=== PATIENT | female | born 1945 | race Hispanic/Latino ===

== ENCOUNTER 2017-07-16 03:16 | Observation (INO) | payer MEDICARE, BC ==
[2017-07-16 03:16] VITALS: BMI 19.8
[2017-07-16 03:34] VITALS: TEMP 98.6
[2017-07-16] MEDS ORDERED: Iohexol 240 (50 ml) PO ONE (04:01)
[2017-07-16] MEDS ORDERED: Iohexol 240 (50 ml) ONE (04:07)
--- NOTE | 2017-07-16 04:12 | ED PDOC ---
HPI: Abdomen <Rachel Lopez Y - Last Filed: 07/16/17 05:45> Chief Complaint (Provider): abdominal pain History Per: Patient, Family History/Exam Limitations: no limitations Onset/Duration Of Symptoms: Days (3) Current Symptoms Are (Timing): Still Present Location Of Pain/Discomfort: RLQ, LLQ, Suprapubic Quality Of Discomfort: "Pain" Associated Symptoms: Constipation. denies: Fever, Chills, Nausea, Vomiting Additional History Per: Patient <Jamila Goode - Last Filed: 07/16/17 05:47> Time Seen by Provider: 07/16/17 03:31 Chief Complaint (Nursing): Abdominal Pain Additional Complaint(s): 72 y/o female history of hypertension, CVA, COPD, back problems presents with lower abdominal pain x 3 days. Associated constipation (last BM 4 days ago), which patient states initially started as diarrhea. Denies fever, nausea/ vomiting, chest pain, shortness of breath, palpitations, urinary symptoms. ( Jamila Goode) Past Medical History <Rachel Lopez Y - Last Filed: 07/16/17 05:45> Reviewed: Historical Data, Nursing Documentation, Vital Signs - Medical History PMH: Anemia, Anxiety, Asthma, COPD, HTN, Hypercholesterolemia Denies: HIV - Surgical History Surgical History: Cholecystectomy - Family History Family History: States: No Known Family Hx <Jamila Goode - Last Filed: 07/16/17 05:47> Vital Signs: Last Vital Signs Temp 98.6 F 07/16/17 03:32 Pulse 104 H 07/16/17 03:32 Resp 17 07/16/17 03:32 BP 147/103 H 07/16/17 03:32 Pulse Ox 98 07/16/17 04:49 - Home Medications Home Medications: Ambulatory Orders Medication Instructions Recorded ALPRAZolam [Xanax] 0.25 mg PO BID PRN 12/24/15 Azilsartan Medoxomil [Edarbi] 40 mg PO DAILY 12/24/15 Atorvastatin [Lipitor] 10 mg PO HS #0 tab 12/26/15 Famotidine [Pepcid] 20 mg PO DAILY #0 tab 12/26/15 traMADol [Ultram] 50 mg PO Q12 PRN #0 tab 12/26/15 Ciprofloxacin [Cipro] 500 mg PO BID #0 tab 01/05/16 - Allergies Allergies/Adverse Reactions: Allergies Allergy/AdvReac Type Severity Reaction Status Date / Time No Known Allergies Allergy Verified 12/26/15 14:53 Review of Systems ROS Statement: Except As Marked, All Systems Reviewed And Found Negative Gastrointestinal: Positive for: Abdominal Pain, Constipation <Jamila Goode - Last Filed: 07/16/17 05:47> Physical Exam - Reviewed Nursing Documentation Reviewed: Yes Vital Signs Reviewed: Yes - Physical Exam Appears: Positive for: Well, Non-toxic, No Acute Distress Head Exam: Positive for: ATRAUMATIC, NORMAL INSPECTION, NORMOCEPHALIC Skin: Positive for: Normal Color Eye Exam: Positive for: Normal appearance ENT: Positive for: Normal ENT Inspection Cardiovascular/Chest: Positive for: Regular Rate, Rhythm Respiratory: Positive for: Normal Breath Sounds Gastrointestinal/Abdominal: Positive for: Bowel Sounds, Soft, Tenderness (rlq, suprapubic, llq) Back: Positive for: Normal Inspection Extremity: Positive for: Normal ROM Neurologic/Psych: Positive for: Alert, Oriented <Jamila Goode - Last Filed: 07/16/17 05:47> - Laboratory Results Result Diagrams: 07/16/17 04:40 07/16/17 04:40 <Rachel Lopez - Last Filed: 07/16/17 05:45> - Laboratory Results Result Diagrams: 07/16/17 04:40 07/16/17 04:40 - ECG O2 Sat by Pulse Oximetry: 98 <Jamila Goode - Last Filed: 07/16/17 05:47> - Progress ED Course And Treament: labs, urine, CT abd/pelvis ordered (Jamila Goode) ED OBSERVATION <Rachel Lopez - Last Filed: 07/16/17 05:45> Date of observation admission: 07/16/17 Time of observation admission: 04:48 <Jamila Goode - Last Filed: 07/16/17 05:47> - Observation admission statement Patient is being placed in observation because:: abdominal pain (Jamila Goode) - Goals of Observation Goals of observation are:: obtain labs, urine, abd/pelvis CT (Jamila Goode) - Progress Note Progress Note: 07/16/17 04:49 Patient resting comfortably; declines pain medication at this time. 07/16/17 05:46 Patient resting comfortably (Jamila Goode) Disposition <Rachel Lopez - Last Filed: 07/16/17 05:45> - Patient ED Disposition Is Patient to be Admitted: No - Disposition Disposition: Transfer of Care Disposition Time: 06:00 Patient Signed Over To: Rachel Lopez Handoff Comments: pending CT, re-eval <Jamila Goode - Last Filed: 07/16/17 05:47> - Clinical Impression Clinical Impression: Abdominal pain - Disposition Condition: STABLE
[2017-07-16 04:44] LABS: BASO # 0.1 K/uL (0.0-0.2); BASO % 1.3 % (0.0-2.0); EOS # 0.1 K/uL (0.0-0.7); EOS % 1.2 % (0.0-4.0); HEMOGLOBIN 9.7 g/dL (12.0-16.0); LYMPH # 1.1 K/uL (1.0-4.3); LYMPH % 15.3 % (20.0-40.0); MEAN CELL VOLUME 92.7 fl (81.0-99.0); MEAN CORPUSCULAR HEMOGLOBIN 30.1 pg (27.0-31.0); MEAN CORPUSCULAR HGB CONC 32.5 g/dL (33.0-37.0); MEAN PLATELET VOLUME 8.1 fl (7.2-11.7); MONO # 0.7 K/uL (0.0-0.8); MONO % 9.2 % (0.0-10.0); NEUT # 5.4 K/uL (1.8-7.0); RBC 3.23 Mil/uL (3.80-5.20); RED CELL DISTRIBUTION WIDTH 15.3 % (11.5-14.5); WHITE BLOOD COUNT 7.4 K/uL (4.8-10.8)
[2017-07-16 04:54] LABS: ALB/GLOB RATIO 1.2 (1.0-2.1); ALBUMIN 4.8 g/dL (3.5-5.0); CALCIUM 8.8 mg/dL (8.4-10.2)
[2017-07-16] MEDS ORDERED: Sodium Chloride 0.9% 500 ML IV STA (05:08)
--- NOTE | 2017-07-16 05:59 | ED PDOC ---
- Laboratory Results Result Diagrams: 07/16/17 04:40 07/16/17 04:40 - ECG O2 Sat by Pulse Oximetry: 98 Medical Decision Making Medical Decision Makin:58 Patient care turned over to myself by the PA Abdominal/Pelvic CT Scan pending. 7 am signed out to DR Navarro to follow up CT Scribe Attestation: Documented by Eloise Garrison, acting as a scribe for Rachel Lopez MD Provider Scribe Attestation: All medical record entries made by the Scribe were at my direction and personally dictated by me. I have reviewed the chart and agree that the record accurately reflects my personal performance of the history, physical exam, medical decision making, and the department course for this patient. I have also personally directed, reviewed, and agree with the discharge instructions and disposition. Disposition - Clinical Impression Clinical Impression: Chronic back pain - POA Present On Arrival: None - Disposition Disposition: Transfer of Care Disposition Time: 07:00 Condition: IMPROVED Patient Signed Over To: Yanci Navarro
--- NOTE | 2017-07-16 07:53 | ED PDOC ---
- Laboratory Results Result Diagrams: 07/16/17 04:40 07/16/17 04:40 - ECG O2 Sat by Pulse Oximetry: 99 Medical Decision Making Medical Decision Making: received patient from Dr. Lopez. patient has abdominal pain and RLQ T. CT scan without evidence of acute abdominal pathology. Evidence of compression fracture which the patient knows about. She stakes that Tramadol once a HS usually helps. She has a followup appointment with Dr. Hidalgo in 2 days. States that Tramadol was d/c because of the opioid laws. She has been taking Celebrex in place of this with inadequate relief. Disposition Doctor Will See Patient In The: Office Counseled Patient/Family Regarding: Diagnosis, Need For Followup, Rx Given - Clinical Impression Clinical Impression: Chronic back pain - POA Present On Arrival: None - Disposition Disposition: Routine/Home Disposition Time: 08:20 Condition: IMPROVED
--- NOTE | 2017-07-16 08:01 | CT ---
PROCEDURE: CT Abdomen and Pelvis with contrast HISTORY: abdominal pain right sided COMPARISON: None. TECHNIQUE: Contrast dose: Oral contrast only. Radiation dose: Total exam DLP = 430.53 mGy-cm. This CT exam was performed using one or more of the following dose reduction techniques: Automated exposure control, adjustment of the mA and/or kV according to patient size, and/or use of iterative reconstruction technique. FINDINGS: LOWER THORAX: Unremarkable. LIVER: Unremarkable. No gross lesion or ductal dilatation. GALLBLADDER AND BILE DUCTS: Status post cholecystectomy. No abnormality is seen in the gallbladder fossa. PANCREAS: Unremarkable. No gross lesion or ductal dilatation. SPLEEN: Unremarkable. ADRENALS: Unremarkable. No mass. KIDNEYS AND URETERS: Right kidney and ureter: Nonobstructing upper tract calculi right kidney. Midpole calculus 2.5 x 5 mm. No evidence of right hydronephrosis or hydroureter. Left kidney in ureter: Left hydronephrosis and hydroureter. No evidence of ureteral or urinary bladder calculi. VASCULATURE: Unremarkable. No aortic aneurysm. BOWEL: Diverticulosis without an acute inflammatory component or other associated pathologic process. APPENDIX: Normal appendix. PERITONEUM: Unremarkable. No free fluid. No free air. LYMPH NODES: Unremarkable. No enlarged lymph nodes. BLADDER: Unremarkable. REPRODUCTIVE: Unremarkable. BONES: Multiple compression fractures lower thoracic and upper lumbar vertebral bodies. Loss of height of L4 also noted. Diffuse osteopenia. OTHER FINDINGS: None. IMPRESSION: Nonobstructing right renal calculus disease. Left hydronephrosis, hydroureter without calculus disease or urinary bladder abnormality. Additional benign and/or incidental findings described above.
[2017-07-16 08:53] VITALS: BP 132/74; PULSE 79; RESP 19
[2017-07-16 09:17] LABS: SQUAMOUS EPITHIAL 1 /hpf (0-5); URINE BACTERIA FEW (<OCC); URINE BILIRUBIN NEGATIVE (NEGATIVE); URINE BLOOD SMALL (NEGATIVE); URINE CLARITY CLOUDY (Clear); URINE COLOR YELLOW (YELLOW); URINE GLUCOSE (UA) NEG (Normal); URINE HYALINE CAST 0-2 /hpf (0-2); URINE LEUKOCYTE ESTERASE MOD Leu/uL (Negative); URINE NITRATE NEGATIVE (NEGATIVE); URINE PROTEIN >=500 mg/dL (NEGATIVE); URINE UROBILINOGEN 0.2-1.0 mg/dL (0.2-1.0)
--- NOTE | 2017-07-16 11:42 | CARD ---
APPROVED REPORT EKG Measurement Heart [id number] OR [id number] [id number] <Conclusion> Sinus tachycardia Minimal voltage criteria for LVH, may be normal variant Borderline ECG
[2017-07-17 23:56] VITALS: O2SAT 98
== END 2017-07-16 08:53 | disposition home or self-care (01) ==
LOC: H.ER 03:16 → H.EROBSV 04:47
PROVIDERS: ADMIT Emergency Medicine; ATTEND Emergency Medicine
DX: R10.31 Right lower quadrant pain (principal); R10.32 Left lower quadrant pain; G89.29 Other chronic pain; M54.5 Low back pain; I10 Essential (primary) hypertension; E78.00 Pure hypercholesterolemia, unspecified; D64.9 Anemia, unspecified; K59.00 Constipation, unspecified; J44.9 Chronic obstructive pulmonary disease, unspecified; F41.9 Anxiety disorder, unspecified; Z86.73 Personal history of transient ischemic attack (TIA), and cerebral infarction without residual deficits
CPT/HCPCS: 74176; 80053; 81003; 83690; 85025; 93005; 96374; 99283; G0378; J1885; J2270; J2405; J7040; Q9966

== ENCOUNTER 2018-06-10 21:15 | Emergency (ER) | payer MEDICARE, BC ==
[2018-06-10 21:15] VITALS: BMI 19.8
--- NOTE | 2018-06-10 22:40 | ED PDOC ---
Upper Extremity Pain/Injury Time Seen by Provider: 06/10/18 21:31 Chief Complaint (Nursing): Finger,Hand,&Wrist History Per: Patient History/Exam Limitations: no limitations Onset/Duration Of Symptoms: Mins Current Symptoms Are (Timing): Still Present Additional Complaint(s): Hx of COPD, HTN, CVA presenting with fall, states she was not supposed to go upstairs by herself but she wanted to take her grandson to the bathroom and she missed a step and fell on her left side but isn't sure how exactly she fell but she's sure she tripped and did not hit her head. States when she's standing she has the most amount of pain in her left knee and left ankle, also complaining of pain in her left wrist. States she takes ASA daily, no other blood thinners. States she feels no pain when lying down or being off her feet. Past Medical History Reviewed: Historical Data, Nursing Documentation, Vital Signs Vital Signs: Last Vital Signs Temp 98.6 F 06/10/18 21:22 Pulse 102 H 06/10/18 21:22 Resp 20 06/10/18 21:22 BP 150/74 06/10/18 21:22 Pulse Ox 95 06/10/18 21:22 - Medical History PMH: Anemia, Anxiety, Asthma, COPD, HTN, Hypercholesterolemia Denies: HIV - Surgical History Surgical History: Cholecystectomy - Family History Family History: States: Unknown Family Hx - Home Medications Home Medications: Ambulatory Orders Medication Instructions Recorded ALPRAZolam [Xanax] 0.25 mg PO BID PRN 12/24/15 Azilsartan Medoxomil [Edarbi] 40 mg PO DAILY 12/24/15 Atorvastatin [Lipitor] 10 mg PO HS #0 tab 12/26/15 Famotidine [Pepcid] 20 mg PO DAILY #0 tab 12/26/15 traMADol [Ultram] 50 mg PO Q12 PRN #0 tab 12/26/15 Ciprofloxacin [Cipro] 500 mg PO BID #0 tab 01/05/16 Celecoxib [Celebrex] 200 mg PO DAILY #14 capsule 07/16/17 traMADol [Ultram] 50 mg PO HS PRN #4 tab 07/16/17 traMADol [Ultram] 50 mg PO TID #12 tab 06/11/18 - Allergies Allergies/Adverse Reactions: Allergies Allergy/AdvReac Type Severity Reaction Status Date / Time No Known Allergies Allergy Verified 12/26/15 14:53 Review of Systems ROS Statement: Except As Marked, All Systems Reviewed And Found Negative Musculoskeletal: Positive for: Hand Pain, Leg Pain Physical Exam - Reviewed Nursing Documentation Reviewed: Yes Vital Signs Reviewed: Yes - Physical Exam Appears: Positive for: Well, Non-toxic, No Acute Distress Head Exam: Positive for: ATRAUMATIC, NORMAL INSPECTION, NORMOCEPHALIC Skin: Positive for: Normal Color, Warm, DRY Eye Exam: Positive for: EOMI, Normal appearance, PERRL ENT: Positive for: Normal ENT Inspection Neck: Positive for: Normal, Painless ROM, Supple Cardiovascular/Chest: Positive for: Regular Rate, Rhythm Respiratory: Positive for: CNT, Normal Breath Sounds Gastrointestinal/Abdominal: Positive for: Normal Exam, Soft. Negative for: Tenderness Back: Positive for: Normal Inspection. Negative for: L CVA Tenderness, Vertebral Tenderness Extremity: Positive for: Normal ROM, Tenderness (L knee with small effusion, no erythema, near FROM; L ankle with medial malleolar tenderness, no swelling/ erythema, 2+ DP's, able to dorsi/plantarflex, sensation intact; L wrist with ecchymoses and swelling on lateral side at base distal radius/base of 1-2 metacarpal, able to give okay sign, peace sign, able to oppose thumb to all fingers, radial pulse 2+, sensation intact), Other (No pelvic tenderness/laxity ) Neurologic/Psych: Positive for: Alert, guitar instructor II-XII, Oriented. Negative for: Motor/Sensory Deficits - ECG O2 Sat by Pulse Oximetry: 95 Medical Decision Making Medical Decision Making: Patient with mechanical fall, will obtain plain films. X-Ray Left Wrist: FINDINGS: Bones/joints: Acute fracture of the distal radius metaphysis. Advanced primary osteoarthritic change of the first carpometacarpal joint. No dislocation. Soft tissues: Soft tissue swelling about the wrist. No radiopaque foreign body. IMPRESSION: 1. Acute fracture of the distal radius metaphysis. 2. Advanced primary osteoarthritic change of the first carpometacarpal joint. X-Ray Pelvis: FINDINGS: Bones/joints: Degenerative spurring of the bilateral hips. No acute fracture. No dislocation. Soft tissues: Unremarkable. IMPRESSION: No acute pelvis findings. X-Ray Left Knee: FINDINGS: Bones/joints: Suprapatellar joint effusion. No acute fracture. No dislocation. Soft tissues: Vascular calcifications in the soft tissues. IMPRESSION: Suprapatellar joint effusion. No acute fracture or dislocation of the left knee. X-Ray Left Ankle: FINDINGS: Bones/joints: Small plantar calcaneal spur. Spurring of the dorsal aspect of the midfoot. No acute fracture. No dislocation. Soft tissues: Unremarkable. IMPRESSION: No acute left ankle findings. Spoke with Dr. Hidalgo who states that the patient should followup with him in his office rather than orthopedics at this time for a non-significantly displaced fracture. Patient was placed in sugar-tong by EDT, was checked afterwards by myself, fingers are warm, well perfused, NV intact. Upon provider reevaluation, patient is stable and requires no further treatment in the ED at this time. Patient will be discharged home. Disposition - Clinical Impression Clinical Impression: Wrist fracture - Disposition Referrals: Davon Hidalgo MD [Family Provider] - Disposition Time: 00:38 Condition: IMPROVED Prescriptions: traMADol [Ultram] 50 mg PO TID #12 tab Instructions: Wrist Fracture (DC), Preventing Falls, Opioids for Short-Term Treatment of Pain, Taking Narcotics Safely Forms: [facility] [employer] (Swedish)
[2018-06-11 00:39] VITALS: BP 154/85; PULSE 98; RESP 18; TEMP 98.9
[2018-06-11 00:42] VITALS: O2SAT 95
--- NOTE | 2018-06-11 09:41 | RAD ---
Date of service: 06/10/2018 PROCEDURE: Left Ankle Radiographs. HISTORY: s/p fall COMPARISON: None FINDINGS: BONES: Normal. No fracture. Tiny plantar surface calcaneal spur. JOINTS: Minor degenerative osteoarthritis. Osteoarthritis. Ankle mortise maintained. Talar dome intact SOFT TISSUES: Normal. OTHER FINDINGS: None. IMPRESSION: Minor degenerative osteoarthritis. No evidence of acute displaced fracture nor dislocation.
--- NOTE | 2018-06-11 09:48 | RAD ---
Date of service: 06/10/2018 PROCEDURE: CHEST RADIOGRAPH, 1 VIEW HISTORY: s/p fall COMPARISON: Comparison made with prior study 12/23/2015. FINDINGS: LUNGS: Poor inspiration with low lung volumes, crowded bronchovascular markings and bibasilar atelectasis. PLEURA: No pneumothorax or pleural fluid seen. CARDIOVASCULAR: Normal. OSSEOUS STRUCTURES: No significant abnormalities. VISUALIZED UPPER ABDOMEN: Normal. OTHER FINDINGS: None. IMPRESSION: Poor inspiration with low lung volumes, crowded bronchovascular markings and bibasilar atelectasis.
--- NOTE | 2018-06-11 12:03 | RAD ---
Date of service: 06/10/2018 PROCEDURE: Left Wrist Radiographs. HISTORY: s/p fall COMPARISON: None. FINDINGS: BONES: Distal radial fracture. JOINTS: Normal. No dislocation. SOFT TISSUES: Soft tissue swelling attests to the acuity of the fracture. OTHER FINDINGS: None. IMPRESSION: Acute distal left radial fracture. The fracture does not extend to the growth plate. Concordant findings (preliminary report) provided by [facility].
--- NOTE | 2018-06-11 12:04 | RAD ---
Date of service: 06/10/2018 PROCEDURE: Left Knee Radiographs. HISTORY: Pain. COMPARISON: None. FINDINGS: BONES: No acute fracture. JOINTS: Normal. No osteoarthritis. JOINT EFFUSION: Moderate suprapatellar joint effusion. OTHER FINDINGS: None. IMPRESSION: Moderate suprapatellar joint effusion. No acute osseous or articular abnormalities. Concordant findings (preliminary report) provided by [facility].
--- NOTE | 2018-06-11 12:24 | RAD ---
Date of service: 06/10/2018 PROCEDURE: Radiographs of the pelvis. HISTORY: s/p fall COMPARISON: None. FINDINGS: BONES: Pelvic Bones: Unremarkable. Hips: Symmetrical, moderate degenerative change. JOINTS: Sacroiliac Joints: Unremarkable. Pubic Symphysis: Unremarkable. OTHER FINDINGS: None. IMPRESSION: No acute findings related to/accounting for the clinical presentation. Additional benign and/or incidental findings described above. Concordant findings (preliminary report) provided by [facility].
== END 2018-06-11 00:56 | disposition home or self-care (01) ==
LOC: H.ER 21:15
DX: S59.202A Unspecified physeal fracture of lower end of radius, left arm, initial encounter for closed fracture (principal); W10.2XXA Fall (on)(from) incline, initial encounter; J44.9 Chronic obstructive pulmonary disease, unspecified; I10 Essential (primary) hypertension; E78.00 Pure hypercholesterolemia, unspecified